=== PATIENT | female | born 1995 | race Caucasian/White ===

== ENCOUNTER → 2016-11-30 | Outpatient (CLI) | payer BC ==
[2016-11-30 14:24] LABS: HEMOGLOBIN 12.9 gm/dl (12.3-15.3); RED BLOOD COUNT 4.08 M/UL (4.00-5.10); WHITE BLOOD COUNT 5.6 K/UL (4.5-11.0)
[2016-11-30 14:51] LABS: BUN/CREATININE RATIO 12 (0-10)
== END ==
LOC: LAB 12:29
PROVIDERS: Internal Medicine Geriatric Medicine
DX: E05.90 Thyrotoxicosis, unspecified without thyrotoxic crisis or storm (principal); E78.2 Mixed hyperlipidemia; I10 Essential (primary) hypertension; E53.8 Deficiency of other specified B group vitamins; E55.9 Vitamin D deficiency, unspecified
CPT/HCPCS: 36415; 80053; 80061; 82607; 84443; 85025